=== PATIENT | male | born 1950 | race Caucasian/White ===

== ENCOUNTER → 2018-12-16 | Outpatient (CLI) | payer OTHER | LOC: BMCIMAGING 14:41 | PROVIDERS: ATTEND Family Medicine | DX: J40 Bronchitis, not specified as acute or chronic (principal); M47.814 Spondylosis without myelopathy or radiculopathy, thoracic region ==

== ENCOUNTER → 2018-12-30 | Outpatient (CLI) | payer OTHER | LOC: BMCIMAGING 14:36 | PROVIDERS: ATTEND Emergency Medicine | DX: R05 Cough (principal); Z87.01 Personal history of pneumonia (recurrent) ==